=== PATIENT | female | born 1950 | race Caucasian/White ===

== ENCOUNTER 2020-04-03 16:59 | Emergency (ER) | payer OTHER ==
[~2020-04-03] VITALS: Ht 162.6 cm; Wt 136.0 kg
--- NOTE | 2020-04-03 17:50 | NUR ---
PT TO XR
--- NOTE | 2020-04-03 18:00 | NUR ---
PT RETURNED FROM XR, CONTINUES TO COMFORTABLY REST ON [place] WITH TV ON, RESPONDS APPROP TO STAFF, NAD AT REST, COMFORT MEASURES PROVIDED, CALL LIGHT WITHIN REACH.
--- NOTE | 2020-04-03 18:43 | NUR ---
REPORT GIVEN TO ESVIN
--- NOTE | 2020-04-03 18:44 | NUR ---
BEDSIDE REPORT FROM LAKISHA MEYERS, PT CARE TRANSFERRED AT THIS TIME.
[2020-04-03 19:11] VITALS: BP 121/52
--- NOTE | 2020-04-03 19:13 | NUR ---
Patient given discharge instructions and they have confirmed that they understand the instructions. Patient ambulatory with steady gait. NAD, DENIES ADDITIONAL QUESTIONS AT THIS TIME. NO PERSONAL BELONGINGS LEFT IN ROOM AFTER DC.
== END 2020-04-03 19:14 | disposition home or self-care (01) ==
LOC: ED 18:41
DX: S40.022A Contusion of left upper arm, initial encounter (principal); S09.90XA Unspecified injury of head, initial encounter; I48.92 Unspecified atrial flutter; M25.512 Pain in left shoulder; W01.0XXA Fall on same level from slipping, tripping and stumbling without subsequent striking against object, initial encounter; Y93.89 Activity, other specified; Y92.098 Other place in other non-institutional residence as the place of occurrence of the external cause; Y99.8 Other external cause status
CPT/HCPCS: 70450; 93005; 99284